=== PATIENT | female | born 1960 | race Caucasian/White ===

== ENCOUNTER 2018-05-20 08:24 | Observation (INO) ==
[2018-05-20] MEDS ORDERED: ASPIRIN CHEW 324 MG PO STA (08:49)
[2018-05-20] MEDS ORDERED: NITROGLYCERIN SL 0.4 MG/TAB TAB SL STA (08:49)
--- NOTE | 2018-05-20 08:57 | XRay Report ---
SINGLE VIEW CHEST CLINICAL HISTORY: Atypical chest pain. FINDINGS: An AP, portable, upright chest radiograph is obtained. No prior studies are available for c omparison at the time of dictation. The examination is degraded by portable technique and patient rot ation. The cardiomediastinal silhouette is unremarkable. The lungs and pleural spaces are clear. No pneumothorax is seen. The bony thorax is grossly intact. IMPRESSION: No active disease in the chest. Electronically signed by: Fredis Levy M.D. 05/20/2018 8:56 AM
[2018-05-20 09:19] LABS: Basophils # (auto) 0.02 K/uL (0-0.2); Basophils % (auto) 0.4 %; Eosinophils # (auto) 0.05 K/uL (0-0.5); Hematocrit (blood only) 42.1 % (37-47); Hemoglobin 14.7 g/dL (12.0-16.0); Immature Granulocytes # (auto) 0.02 K/uL (0.00-0.02); Immature Granulocytes % (auto) 0.4 %; Lymphocytes # (auto) 1.33 K/uL (1.2-3.4); Lymphocytes % (auto) 25.4 %; Mean Corpuscular Hgb Conc 34.9 g/dL (32-36); Mean Corpuscular Volume 90.9 fL (80-100); Mean Platelet Volume 9.4 fL (7.4-10.4); Monocytes % (auto) 7.6 %; Neutrophils # (auto) 3.41 K/uL (1.4-6.5); Neutrophils % (auto) 65.2 %; Platelet Count 312 K/uL (130-400); RDW Coefficient of Variation 13.2 % (11.5-14.5); RDW Standard Deviation 44.1 fL (36.4-46.3); Red Blood Count 4.63 M/uL (4.2-5.4); White Blood Count 5.23 K/uL (4.8-10.8)
[2018-05-20 09:38] LABS: Albumin Level 4.2 gm/dl (3.4-5.0); Aspartate Aminotransferase 19 U/L (15-37); Blood Urea Nitrogen 17 mg/dl (7-18); Calcium 9.6 mg/dl (8.5-10.1); Carbon Dioxide 23 mmol/L (21-32); Chloride 112 mmol/L (98-107); Creatinine Clr Calc Pharmacy 65.8 ml/min; Est GFR (African American) 71.4; Est GFR (Non-African American) 61.6; Glucose 108 mg/dl (70-99); Potassium 3.7 mmol/L (3.5-5.1); Sodium 143 mmol/L (136-145)
[2018-05-20 09:42] LABS: Alanine Aminotransferase 35 U/L (12-78); Albumin Globulin Ratio 1.2 (0.9-2); Alkaline Phosphatase 81 U/L (45-117); Bilirubin,Total 0.6 mg/dl (0.2-1); Globulin 3.6 gm/dl (2.5-4.0); Total Protein 7.8 gm/dl (6.4-8.2); Troponin I < 0.015 ng/ml (0-0.045)
[2018-05-20 09:59] LABS: D Dimer < 190 ug/L FEU (0-500)
[2018-05-20] MEDS ORDERED: MoRPHine SULFATE 10 MG/ML CARP/VIAL IV STA (10:31)
[2018-05-20] MEDS ORDERED: ONDANSETRON INJ 2 MG/ML 2 ML VIAL IV STA (10:31)
[2018-05-20] MEDS ORDERED: KETOROLAC 30 MG/ML VIAL IV ONE (11:08)
--- NOTE | 2018-05-20 11:24 | History & Physical Report ---
Date of Service May 20, 2018 Assessment & Plan (1) Chest pain: Uncertain etiology, ACS vs costochondritis Also with some lightheadedness and pain with deep inspiration, TTP along sternum Trop neg x1, serials pending Stress ECHO in AM if trop neg EKG WNL Lipid panel, lyme pending CBC, PRP WNL Ddimer neg, will hold on CTA given this in the setting of VSS Trial of toradol, if helpful would lead to more MSK based dx (2) Hyperlipidemia: States dx on routine screening in her teens No hx of tx Lipid panel pending (3) DVT prophylaxis: SCDs, ambulation History of Present Illness Primary Care Provider: NO PCP 57 y/o F c/o chest pain. Pt states she woke up from sleep this AM around 3:30- 4a with a substernal chest pain. She thought at first it was her hands as she has been having issues with b/l carpal tunnel recently. 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 She then realized it was more her chest. She noted that she could not take a deep breath without worsening pain. She was not able to fall back asleep as these sx would come and go. She has strong FH of CVA, so she thought she should be evaluated. She has felt lightheaded with this at times. She was given a nitro in the ED and this lessened her pain to a "light" pain, but it is still present. She is not frankly SOB, but just feels like she cannot get a deep breath. She states that she had a similar episode roughly 2 weeks ago, but it went away. Prior to that, no hx of similar. She worked 10 hours yesterday without issue. She states she did not do any major activity over the weekend as she was trying to rest her hands. She has been eating without issue. Pt denies fever, abd pain, n/v/c/d, LE pain or swelling. She denies recent URI or other viral infection. Pt states she was tested for cholesterol in high school as part of routine screening. 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 She states that she was never put on medication as her mother had many issues with muscle pain on statins. She does have this monitored routinely. Her last lipid panel was last summer. Her records are in the [facility] system as she has followed with her current PCP since the mid-. She now has [facility] insurance however, and will need to change to another group. Allergies Allergy/AdvReac Type Severity Reaction Status Date / Time adhesive Allergy Rash Verified 05/20/18 09:16 Penicillins Allergy Hives Verified 05/20/18 09:16 Home Medications Home Medications Medication Instructions Recorded Confirmed Type No Known Home Medications 05/20/18 05/20/18 History Past Med/Surg History Medical History High cholesterol Family History Mother Stroke Brother Stroke Social History Preferred Language: Romanian Communication Ability: Effective Beliefs That Will Affect Care: None Current Living Situation: Spouse Current Living Situation Comment: Other Information That Helps Us Care for You: No Feels Safe at Home: Yes Safety Concerns: Feels Safe At This Time Smoking Status: Never smoker Hx Alcohol Use: No Hx Substance Use: No Review of Systems Pertinent positives and negatives reviewed in HPI--all others negative Physical Exam Vital Signs (Past 24 Hours): Last Vital Signs Temp 36.9 C 05/20/18 08:30 Pulse 66 05/20/18 11:00 Resp 18 05/20/18 11:00 BP 140/88 05/20/18 11:00 Pulse Ox 98 05/20/18 11:00 Constitutional: WD/WN, vitals as above Eyes: normal visual spain by confrontation and + anicteric sclerae Neck: normal visual inspection and trachea midline Respiratory: normal respiratory effort, lungs clear to auscultation Cardiovascular: Rate/Rhythm: regular rate and regular rhythm Gastrointestinal (Abdomen): Inspection/Auscultation: abdomen not distended Percussion/Palpation: abdomen soft; abdomen nontender Musculoskeletal: Head/Neck/Chest: normocephalic and head atraumatic negative for edema, peripheral pulses intact TTP along sternal region, no TTP laterally Skin: no rashes, warm and dry Neurologic: awake; not confused Speech / Cognition: normal speech Psychiatric: A+Ox3, euthymic affect Results & Data Diagnostic Findings CXR: neg for acute ECG Rhythm: normal sinus Code Status & VTE Plan Code Status Full code VTE Prophylaxis Plan VTE Prophylaxis will be ordered: Yes
[2018-05-20] MEDS ORDERED: MAGNESIUM HYDROXIDE SUSP 30 ML UDC PO PRN (12:29)
[2018-05-20] MEDS ORDERED: NITROGLYCERIN SL 0.4 MG/TAB TAB SL PRN (12:29)
[2018-05-20] MEDS ORDERED: ONDANSETRON INJ 2 MG/ML 2 ML VIAL IV PRN (12:29)
[2018-05-20] MEDS ORDERED: ACETAMINOPHEN 325 MG TAB PO PRN (12:29)
--- NOTE | 2018-05-20 13:44 | Emergency Department Note ---
Entered by Gay Benjamin acting as a scribe for Js Woods DO History of Present Illness General Chief complaint: Cardiac Assessment Stated complaint: SOB, CHEST PAIN, FACE FEELS FUNNY, DIZZY Source: patient History of Present Illness Provider complaint: chest pain Onset (ago): hour(s) 5 Location: chest Severity: similar to prior episodes Pain Consistency: + constant Quality: + other (pressure/heaviness) Associated symptoms: + other (shortness of breath, left arm pain, feeling "funny" around cheek/eye. Denies: weakness, numbness, cough, runny nose, swelling of calves) The patient is a 57 year old female who presents to the Emergency Room with complaints of constant chest pain beginning about 5 hours ago. She describes the pain as a pressure/heaviness, and notes it woke her up. The patient notes she has had similar pain intermittently recently. She states she feels unable to take a deep breath, as breathing exacerbates her pain. The patient reports recent left arm pain, which worsened about 5 hours ago. She notes she feels "funny" around her cheek/eye. The patient denies weakness, numbness, cough, or runny nose. She denies swelling of calves, recent trips, history of immobilization or recent surgery, prior history of DVT, hemoptysis, history of malignancy, history of smoking, diabetes, hypertension, or CAD. Home Medications Home Medications Medication Instructions Recorded Confirmed Type No Known Home Medications 05/20/18 05/20/18 History Allergies Allergy/AdvReac Type Severity Reaction Status Date / Time adhesive Allergy Rash Verified 05/20/18 09:16 Penicillins Allergy Hives Verified 05/20/18 09:16 Past Med/Surg History Medical History High cholesterol Family History Mother Stroke Brother Stroke Social History Preferred Language: Turkish Communication Ability: Effective Beliefs That Will Affect Care: None Current Living Situation: Spouse Current Living Situation Comment: Other Information That Helps Us Care for You: No Feels Safe at Home: Yes Safety Concerns: Feels Safe At This Time Smoking Status: Never smoker Hx Alcohol Use: No Hx Substance Use: No Review of Systems See HPI for pertinent positives & negatives. and A total of 10 systems reviewed and were otherwise negative Physical Exam Vital Signs Vital Signs - 24 hr 05/20/18 08:30 05/20/18 08:32 05/20/18 08:46 Temperature 36.9 C Temperature Source Oral Sepsis Recent Fever Within 48 Hours No Sepsis Action Taken by Nursing No Action Required Pulse Rate 71 Pulse Rate [Apical] Pulse Rate from SpO2 Sensor Pulse Rhythm Regular Pulse Rhythm [Apical] Pulse Strength Normal Pulse Strength [Apical] Respiratory Rate 20 Respiratory Effort / Characteristics Non-Labored Respiratory Depth Normal Respiratory Pattern Regular Blood Pressure Blood Pressure [Right Arm] 173/100 H Blood Pressure Mean Blood Pressure Mean [Right Arm] 124 Blood Pressure Position Sitting Blood Pressure Position [Right Arm] Sitting Pulse Oximetry 100 100 Oxygen Delivery Method Room Air Room Air Oxygen Flow Rate 0 05/20/18 08:50 05/20/18 09:05 05/20/18 09:13 Temperature Temperature Source Sepsis Recent Fever Within 48 Hours Sepsis Action Taken by Nursing Pulse Rate Pulse Rate [Apical] 75 86 66 Pulse Rate from SpO2 Sensor Pulse Rhythm Pulse Rhythm [Apical] Regular Regular Regular Pulse Strength Pulse Strength [Apical] Normal Respiratory Rate 19 12 11 L Respiratory Effort / Characteristics Non-Labored Non-Labored Respiratory Depth Normal Normal Respiratory Pattern Regular Blood Pressure Blood Pressure [Right Arm] 147/86 H 133/76 152/78 H Blood Pressure Mean Blood Pressure Mean [Right Arm] 106 95 102 Blood Pressure Position Blood Pressure Position [Right Arm] Sitting Sitting Pulse Oximetry 100 98 98 Oxygen Delivery Method Room Air Room Air Room Air Oxygen Flow Rate 05/20/18 09:30 05/20/18 10:00 05/20/18 10:30 Temperature Temperature Source Sepsis Recent Fever Within 48 Hours Sepsis Action Taken by Nursing Pulse Rate 67 67 Pulse Rate [Apical] 66 Pulse Rate from SpO2 Sensor 67 66 Pulse Rhythm Pulse Rhythm [Apical] Regular Pulse Strength Pulse Strength [Apical] Respiratory Rate 11 L 17 12 Respiratory Effort / Characteristics Non-Labored Respiratory Depth Normal Respiratory Pattern Regular Blood Pressure 120/74 135/82 Blood Pressure [Right Arm] 127/83 Blood Pressure Mean 89 99 Blood Pressure Mean [Right Arm] 97 Blood Pressure Position Blood Pressure Position [Right Arm] Sitting Pulse Oximetry 99 99 99 Oxygen Delivery Method Room Air Oxygen Flow Rate 05/20/18 10:44 05/20/18 11:00 05/20/18 11:30 Temperature Temperature Source Sepsis Recent Fever Within 48 Hours Sepsis Action Taken by Nursing Pulse Rate Pulse Rate [Apical] 66 65 Pulse Rate from SpO2 Sensor Pulse Rhythm Pulse Rhythm [Apical] Pulse Strength Pulse Strength [Apical] Respiratory Rate 18 18 Respiratory Effort / Characteristics Non-Labored Spontaneous Non-Labored Spontaneous Non-Labored Spontaneous Respiratory Depth Normal Normal Normal Respiratory Pattern Regular Blood Pressure Blood Pressure [Right Arm] 140/88 135/87 Blood Pressure Mean Blood Pressure Mean [Right Arm] 105 103 Blood Pressure Position Blood Pressure Position [Right Arm] Lying Lying Pulse Oximetry 98 99 Oxygen Delivery Method Room Air Room Air Room Air Oxygen Flow Rate 05/20/18 11:49 05/20/18 12:14 05/20/18 12:15 Temperature Temperature Source Sepsis Recent Fever Within 48 Hours Sepsis Action Taken by Nursing Pulse Rate 66 Pulse Rate [Apical] 66 85 Pulse Rate from SpO2 Sensor Pulse Rhythm Pulse Rhythm [Apical] Pulse Strength Pulse Strength [Apical] Respiratory Rate 14 16 14 Respiratory Effort / Characteristics Non-Labored Respiratory Depth Shallow Respiratory Pattern Regular Blood Pressure Blood Pressure [Right Arm] 135/87 136/79 Blood Pressure Mean Blood Pressure Mean [Right Arm] 103 98 Blood Pressure Position Blood Pressure Position [Right Arm] Sitting Pulse Oximetry 99 99 99 Oxygen Delivery Method Room Air Room Air Room Air Oxygen Flow Rate GENERAL: Sitting up in bed, alert, well appearing, well nourished, no distress, non-toxic EYE EXAM: normal conjunctiva. PERRL and EOM's intact. OROPHARYNX: no exudate, no erythema, lips, buccal mucosa, and tongue normal and mucous membranes are moist NECK: supple, no nuchal rigidity, no adenopathy, non-tender LUNGS: Clear to auscultation. Normal chest wall mechanics HEART: no murmurs, S1 normal and S2 normal ABDOMEN: abdomen soft, non-tender, normo-active bowel, sounds, no masses, no re bound or guarding. BACK: Back is symmetrical on inspection and there is no deformity, no midline tenderness, no CVA tenderness. SKIN: no rashes and no bruising UPPER EXTREMITIES: upper extremities are grossly normal. Radial pulses equal bilaterally. LOWER EXTREMITIES: No pitting edema. Calves equal bilaterally. NEURO EXAM: Normal sensorium, cranial nerves II-XII intact, normal speech, no weakness of arms, no weakness of legs. No drift. Finger to noseintact. Gross sensation intact. Course ED COURSE: Vital signs were reviewed and showed hypertension. The patients medical record was reviewed The above diagnostic studies were performed and reviewed. ED treatments and interventions as stated above. 0840: The patient was evaluated in room B2. A complete history and physical examination was performed. 1031: The patient states her pain improved with nitroglycerin, but is now returning. I discussed my findings with the patient and she understands and agrees with the treatment plan. 1046: I reviewed the patient's case with Dr. Al, [facility] hospitalist. She will evaluate the patient for further management. Based on the patients age, coexisting illnesses, exam and lab findings the decision to treat as an inpatient was made. The patient remained stable while under my care. The patient will be evaluated for further management. Consultations Consultation #1: Dr. Al, [facility] hospitalist Time: 10:46 Administered Medications Discontinued Medications Aspirin (Aspirin) 324 mg PO NOW STA Stop: 05/20/18 08:50 Last Admin: 05/20/18 08:57 Dose: 324 mg Documented by: [id number] Ketorolac Tromethamine (Toradol) 30 mg IV NOW ONE Stop: 05/20/18 11:09 Last Admin: 05/20/18 11:15 Dose: 30 mg Documented by: [id number] Morphine Sulfate (Morphine Sulfate) 6 mg IV NOW STA Stop: 05/20/18 10:32 Last Admin: 05/20/18 11:09 Dose: Not Given Documented by: [id number] Nitroglycerin (Nitrostat) 0.4 mg SL NOW STA Stop: 05/20/18 08:50 Last Admin: 05/20/18 08:59 Dose: 0.4 mg Documented by: [id number] Ondansetron HCl (Zofran) 4 mg IV NOW STA Stop: 05/20/18 10:32 Last Admin: 05/20/18 11:10 Dose: Not Given Documented by: [id number] Medical Decision Making Differential Diagnosis Etiologies such as shingles, musculoskeletal pain, pericarditis, myocarditis, cardiac ischemia, pericardial tamponade, pneumonia, pneumothorax, pleural effusion, hemothorax, pleurisy, aortic pathology, pulmonary embolism, intra- abdominal process, as well as others were considered. Medical Records Attestation: I reviewed the patient's medical records. Home Medications Current Medication List: was personally reviewed by me Laboratory Data Attestation: I reviewed the patient's lab results. Result diagrams: 05/20/18 08:36 05/20/18 08:36 Lab Results 05/20/18 05/20/18 05/20/18 Range/Units 08:36 08:36 08:39 WBC 5.23 (4.8-10.8) K/uL RBC 4.63 (4.2-5.4) M/uL Hgb 14.7 (12.0-16.0) g/dL Hct 42.1 (37-47) % MCV 90.9 (80-100) fL MCH 31.7 (25-34) pg MCHC 34.9 (32-36) g/dL RDW Std Deviation 44.1 (36.4-46.3) fL RDW Coeff of Prema 13.2 (11.5-14.5) % Plt Count 312 (130-400) K/uL MPV 9.4 (7.4-10.4) fL Immature Gran % (Auto) 0.4 % Neut % (Auto) 65.2 % Lymph % (Auto) 25.4 % [place] % (Auto) 7.6 % Eos % (Auto) 1.0 % Baso % (Auto) 0.4 % Immature Gran # (Auto) 0.02 (0.00-0.02) K/uL Neut # (Auto) 3.41 (1.4-6.5) K/uL Lymph # (Auto) 1.33 (1.2-3.4) K/uL [place] # (Auto) 0.40 (0.11-0.59) K/uL Eos # (Auto) 0.05 (0-0.5) K/uL Baso # (Auto) 0.02 (0-0.2) K/uL D-Dimer < 190 (0-500) ug/L FEU Sodium 143 (136-145) mmol/L Potassium 3.7 (3.5-5.1) mmol/L Chloride 112 H (98-107) mmol/L Carbon Dioxide 23 (21-32) mmol/L Anion Gap 8.0 (3-11) BUN 17 (7-18) mg/dl Creatinine 1.00 (0.6-1.2) mg/dl Est Cr Clr Drug Dosing 65.8 ml/min Est GFR ( Amer) 71.4 Est GFR (Non-Af Amer) 61.6 BUN/Creatinine Ratio 17.0 (10-20) Glucose 108 H (70-99) mg/dl Calcium 9.6 (8.5-10.1) mg/dl Total Bilirubin 0.6 (0.2-1) mg/dl AST 19 (15-37) U/L ALT 35 (12-78) U/L Alkaline Phosphatase 81 (45-117) U/L Troponin I < 0.015 (0-0.045) ng/ml Total Protein 7.8 (6.4-8.2) gm/dl Albumin 4.2 (3.4-5.0) gm/dl Globulin 3.6 (2.5-4.0) gm/dl Albumin/Globulin Ratio 1.2 (0.9-2) Lipase 111 (73-393) U/L 05/20/18 Range/Units 12:45 WBC (4.8-10.8) K/uL RBC (4.2-5.4) M/uL Hgb (12.0-16.0) g/dL Hct (37-47) % MCV (80-100) fL MCH (25-34) pg MCHC (32-36) g/dL RDW Std Deviation (36.4-46.3) fL RDW Coeff of Prema (11.5-14.5) % Plt Count (130-400) K/uL MPV (7.4-10.4) fL Immature Gran % (Auto) % Neut % (Auto) % Lymph % (Auto) % [place] % (Auto) % Eos % (Auto) % Baso % (Auto) % Immature Gran # (Auto) (0.00-0.02) K/uL Neut # (Auto) (1.4-6.5) K/uL Lymph # (Auto) (1.2-3.4) K/uL [place] # (Auto) (0.11-0.59) K/uL Eos # (Auto) (0-0.5) K/uL Baso # (Auto) (0-0.2) K/uL D-Dimer (0-500) ug/L FEU Sodium (136-145) mmol/L Potassium (3.5-5.1) mmol/L Chloride (98-107) mmol/L Carbon Dioxide (21-32) mmol/L Anion Gap (3-11) BUN (7-18) mg/dl Creatinine (0.6-1.2) mg/dl Est Cr Clr Drug Dosing ml/min Est GFR ( Amer) Est GFR (Non-Af Amer) BUN/Creatinine Ratio (10-20) Glucose (70-99) mg/dl Calcium (8.5-10.1) mg/dl Total Bilirubin (0.2-1) mg/dl AST (15-37) U/L ALT (12-78) U/L Alkaline Phosphatase (45-117) U/L Troponin I < 0.015 (0-0.045) ng/ml Total Protein (6.4-8.2) gm/dl Albumin (3.4-5.0) gm/dl Globulin (2.5-4.0) gm/dl Albumin/Globulin Ratio (0.9-2) Lipase (73-393) U/L Imaging Data Radiologist's Impression: Radiology results as stated below per my review and the radiologist's interpretation: SINGLE VIEW CHEST CLINICAL HISTORY: Atypical chest pain. FINDINGS: An AP, portable, upright chest radiograph is obtained. No prior studies are available for comparison at the time of dictation. The examination is degraded by portable technique and patient rotation. The cardiomediastinal silhouette is unremarkable. The lungs and pleural spaces are clear. No pneumothorax is seen. The bony thorax is grossly intact. IMPRESSION: No active disease in the chest. Electronically signed by: Fredis Levy M.D. 05/20/2018 8:56 AM ECG Data Attestation: I personally reviewed and interpreted this ECG as follows: Indication: chest pain Rate (beats per minute): 63 Rhythm: normal sinus Findings: + other (normal axis.); no PVC MDM Narrative Patient is a 57-year-old female who presents the ER for chest pain shortness of breath associate with arm pain. She has a past medical history of hyperlipidemia. Symptoms started around 330 this morning. No other exacerbating or remitting factors. Labs were obtained and shows no significant leukocytosis or anemia. D-dimer was negative. BMP along with LFTs bilirubin and lipase is unremarkable. Troponin was negative. Chest x-ray and EKG were unremarkable. Patient was updated bedside and patient was admitted to the hospital for further observation. Patient was given nitro and symptoms did resolve along with aspirin. Her symptoms did recur and consequently she was given IV morphine. Impression & Plan Chest pain, precordial Discharge Plan Visit Data *Final* Discharge Date/Time: 05/20/18 12:15 Chief Complaint: Cardiac Assessment Stated Complaint: SOB, CHEST PAIN, FACE FEELS FUNNY, DIZZY ED Provider: Js Woods Discharge Problem: Chest pain, precordial Patient Disposition: Admitted As Inpatient Discharge Instructions Interventions: ED Discharge Assessment Last Done: 05/20/18 12:15 The scribe's documentation has been prepared under my direction and personally reviewed by me in its entirety. I confirm that the note above accurately reflects all work, treatment, procedures, and medical decision making performed by me.
[2018-05-20 14:18] LABS: Lyme Ab IgM w/WB Rflx Negative (Negative)
[2018-05-20 14:21] LABS: Lyme Ab IgG w/WB Rflx Negative (Negative)
[2018-05-21 07:55] LABS: Chol HDL Ratio 4; Cholesterol 225 mg/dl (0-200); HDL Cholesterol 54 mg/dl; LDL Cholesterol Calculated 144 mg/dl; Triglycerides 137 mg/dl (0-150); VLDL Cholesterol 27 mg/dl
--- NOTE | 2018-05-21 16:42 | Discharge Summary ---
Date of Service May 21, 2018 Admission HPI Per Admitting Provider 57 y/o F c/o chest pain. Pt states she woke up from sleep this AM around 3:30- 4a with a substernal chest pain. She thought at first it was her hands as she has been having issues with b/l carpal tunnel recently. 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 She then realized it was more her chest. She noted that she could not take a deep breath without worsening pain. She was not able to fall back asleep as these sx would come and go. She has strong FH of CVA, so she thought she should be evaluated. She has felt lightheaded with this at times. She was given a nitro in the ED and this lessened her pain to a "light" pain, but it is still present. She is not frankly SOB, but just feels like she cannot get a deep breath. She states that she had a similar episode roughly 2 weeks ago, but it went away. Prior to that, no hx of similar. She worked 10 hours yesterday without issue. She states she did not do any major activity over the weekend as she was trying to rest her hands. She has been eating without issue. Pt denies fever, abd pain, n/v/c/d, LE pain or swelling. She denies recent URI or other viral infection. Pt states she was tested for cholesterol in high school as part of routine screening. 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 She states that she was never put on medication as her mother had many issues with muscle pain on statins. She does have this monitored routinely. Her last lipid panel was last summer. Her records are in the [employer] system as she has followed with her current PCP since the mid-. She now has [facility] insurance however, and will need to change to another group. Principal Diagnosis Chest pain; likely chostochondritis Discharge Exam Constitutional WD/WN, vitals as above Eyes normal visual spain by confrontation and + anicteric sclerae Neck normal visual inspection and trachea midline Respiratory normal respiratory effort, lungs clear to auscultation Cardiovascular Rate/Rhythm: regular rate and regular rhythm Gastrointestinal (Abdomen) Inspection/Auscultation: abdomen not distended Percussion/Palpation: abdomen soft; abdomen nontender Musculoskeletal Head/Neck/Chest: normocephalic and head atraumatic Skin no rashes, warm and dry Neurologic awake; not confused Speech / Cognition: normal speech Psychiatric A+Ox3, euthymic affect Discharge Data Allergies Allergy/AdvReac Type Severity Reaction Status Date / Time adhesive Allergy Rash Verified 05/20/18 09:16 Penicillins Allergy Hives Verified 05/20/18 09:16 Consultations 05/20/18 12:29 Consult Case Management - Discharge Planning Routine Hospital Course (1) Chest pain: Concern for acute coronary syndrome, but all troponins and EKGs were negative. She had a exercise stress test that did not show any ischemic changes. - Likely chostochondritis; patient was advised to take ibuprofen 400mg PO BID x 3-4 days. If this improved her pain, she could then take ibuprofen PRN. If this did not improve her pain, she could try a 1-2 week trial of a PPI. She was advised to follow up with her PCP. (2) Hyperlipidemia: Lipid panel showed total cholesterol of 225, LDL 144, and HDL 54. She deferred starting a statin to decision with her PCP. (3) DVT prophylaxis: SCDs, ambulation Total Time Total Time Spent Total Time Spent (In Minutes): 35 Total Time Includes: Examination of the Patient, Discharge Planning and Medication Reconciliation Discharge Plan Discharge Items Patient Disposition: Home - Self-Care Reason For Visit: CHEST PAIN Discharge Diagnosis: Chest pain - Likely chostochondritis Discharge Goals: Decrease discomfort and Diagnostic testing Activity: Resume your previous activity Non-emergency contact: Primary Care Provider Call non-emergency contact if: your symptoms worsen and your pain is not controlled Follow-up/Referrals: PCP,NO [Physician] - (Please follow up with your PCP (or establish care with one) to follow up on your chest pain episode.) Diet: Regular Addtl Provider Instructions: Darryn Haris, You were admitted to the hospital with chest pain. We were worried about your heart, but your troponins (cardiac enzymes) came back normal, meaning you did not have a heart attack. You then underwent a stress test which showed good heart squeeze even while your heart rate was very high. This tells us that the blood vessels delivering blood to your heart do not have any blockages that are large enough to limit blood flow. Without doing an invasive procedure such as a heart catheterization, this is the best test to look at your risk for heart attack in the future. Since we do not believe this pain was heart-related, we discussed other possible causes of your chest pain. One possible explanation is that you are having a bit of inflammation or irritation of the ribs & tendons in the chest wall. Please take ibuprofen (Motrin) 400mg (usually 2 tablets) two times per day with breakfast and dinner for 3-4 days to see if this improves the pain. If so, you can take ibuprofen as needed for the pain. If it does not help, you should discuss this with your PCP (or find one if you do not have a PCP) because it may some something else like some stomach irritation. If you have severe chest pain, and if you have nausea, vomiting, lightheadedness, palpitations, or if it radiates to your arm or jaw, please return to the hospital right away or call [phone]. Prescriptions: New ibuprofen 200 mg tablet 400 mg PO BID Qty: 16 RF: 0 Continued No Known Home Medications RF: 0 Stand-Alone Forms: My [facility], Work/School Release (Inpt) Discharge Orders: Discharge Order (Routine); Ordered 05/21/18 Ordered By: Darrell Barlow Admission Data Admit Date/Time: 05/20/18 11:12 Attending Provider: Darrell Barlow Admit Provider: Ellie Al Primary Care Provider: Beny Andrews Service: Telemetry Other Interventions: Discharge Summary Assessment (RN) Last Done: 05/21/18 14:50 DC Date/Time DO NOT enter until pt leaves facility: 05/21/18 15:15
== END 2018-05-21 15:15 | disposition home or self-care (01) ==
LOC: ED 08:24 → 2N 08:24 → SUATTDRO 11:12 → 2N 12:15

== ENCOUNTER 2019-09-18 07:56 | Observation (INO) ==
[2019-09-18] MEDS ORDERED: OPTIRAY 320 125ml IV ONE (08:18)
[2019-09-18] MEDS ORDERED: LABETALOL HCL IV 5 MG/ML 20ML IV PRN (08:31)
[2019-09-18] MEDS ORDERED: MAGNESIUM SULFATE / D5W 1 GM/100 ML BAG IV ONE (08:31)
[2019-09-18] MEDS ORDERED: NITROGLYCERIN 2% OINTMENT 30GM TUBE EXT STA (08:37)
--- NOTE | 2019-09-18 08:42 | Emergency Department Note ---
History of Present Illness General Chief complaint: Illness Stated complaint: RT SIDED FACIAL/ARM NUMBNESS Time Seen by Provider: 09/18/19 08:08 Source: patient, RN notes reviewed and old records reviewed Mode of arrival: ambulatory Limitations: no limitations History of Present Illness Provider complaint: Rt sided weakness, chest pain Onset (ago): hour(s) 4 Location: chest Radiation: back Severity: mild Pain Consistency: + intermittent Maximum Pain Intensity: 3 Current Pain Intensity: 3 Quality: + aching Relieved By: + immobilization Exacerbated By: + movement Associated symptoms: + weakness (Right sided) Treatments prior to arrival: none This is a 59-year-old female who presents emergency department complaining of right-sided weakness that started approximately 3-1/2 hours ago. The patient reports she woke out of bed with the symptoms along with numbness and tingling in the right side. In addition to this she is also complaining of right-sided chest pain that is worse with exertion. Upon arrival to the emergency department patient reports her symptoms actually feel better. She reports she has been under a tremendous amount of stress lately as her is tested positive for bonilla virus and she has lost 2 jobs due to this diagnosis. Home Medications Home Medications Medication Instructions Recorded Confirmed Type No Known Home Medications 09/18/19 09/18/19 History Allergies Allergy/AdvReac Type Severity Reaction Status Date / Time adhesive Allergy Rash Verified 09/18/19 10:07 morphine Allergy Dizziness Verified 09/18/19 10:07 Penicillins Allergy Hives Verified 09/18/19 10:07 Past Med/Surg History Medical History High cholesterol NO MEDS Osteoarthritis Simple endometrial hyperplasia without atypia Surgical History H/O carpal tunnel repair BILAT H/O section H/O colonoscopy H/O dilation and curettage H/O foot surgery BILAT -SCREWS IN BOTH History of biopsy UTERINE (-) History of surgery on arm ULNAR NERVE- RIGHT History of tooth extraction S/P bunionectomy LEFT FOOT Family History Mother Stroke TIA (transient ischemic attack) Brother Stroke Father Adenomatous polyp Diverticulitis Afib Lung cancer Aunt Alzheimer disease Diabetes Breast cancer Son Hypertension Family/Other Skin cancer Denies family history of Ovarian cancer Colorectal cancer Social History Smoking Status: Never smoker Second Hand Exposure: No; Hx Alcohol Use: No Hx Substance Use: No Preferred Language: Polish Communication Ability: Effective Manager Required: No Beliefs That Will Affect Care: None Current Living Situation: Spouse Current Living Situation Comment: Other Information That Helps Us Care for You: No Feels Safe at Home: Yes Safety Concerns: Feels Safe At This Time Review of Systems A total of 10 systems reviewed and were otherwise negative Physical Exam Vital Signs Vital Signs - 24 hr 09/18/19 08:37 09/18/19 08:40 09/18/19 08:50 Pulse Rate 69 72 70 Pulse Rate from SpO2 Sensor Respiratory Rate 13 17 11 L Blood Pressure Blood Pressure Mean Pulse Oximetry 09/18/19 09:00 09/18/19 09:01 09/18/19 09:10 Pulse Rate 74 71 72 Pulse Rate from SpO2 Sensor 75 71 70 Respiratory Rate 10 L 7 L 13 Blood Pressure 159/91 H Blood Pressure Mean 120 Pulse Oximetry 100 100 100 09/18/19 09:15 09/18/19 09:16 09/18/19 09:41 Pulse Rate 66 66 81 Pulse Rate from SpO2 Sensor 67 67 77 Respiratory Rate 10 L 9 L 15 Blood Pressure 153/87 H 147/75 H Blood Pressure Mean 126 99 Pulse Oximetry 100 100 100 09/18/19 09:45 09/18/19 09:46 09/18/19 10:00 Pulse Rate 72 83 71 Pulse Rate from SpO2 Sensor 73 79 72 Respiratory Rate 12 16 11 L Blood Pressure 138/96 154/92 H Blood Pressure Mean 111 120 Pulse Oximetry 100 100 99 09/18/19 10:01 09/18/19 10:15 Pulse Rate 73 75 Pulse Rate from SpO2 Sensor 73 77 Respiratory Rate 9 L 19 Blood Pressure Blood Pressure Mean Pulse Oximetry 99 98 VITAL SIGNS - Vital signs and nursing notes were reviewed. GENERAL - 59-year-old female appearing stated age who is in no acute distress. Communicates well with provider and answers questions appropriately. SKIN - Without rashes. HEAD - NC/AT. EYES - PERRL with EOMI bilaterally. Sclera anicteric. Palpebral conjunctiva pink and moist with no injection noted. EARS - No deformities of external structures noted on gross examination bilaterally. No pain elicited with palpation of the tragus bilaterally. External auditory canals without discharge or otorrhea. Tympanic membranes pearly german without retraction or bulging. No fluid or purulent material visualized behind the TM. Handle of malleus, umbo, cone of light, pars tensa/flaccid all easily visualized. NOSE - Midline and without cyanosis. No epistaxis or purulent drainage noted. S eptum midline without deviation or septal hematoma noted. MOUTH/OROPHARYNX - Without perioral cyanosis. Buccal mucosa pink and moist and without leukoplakia. Tongue midline with equal elevation of palate bilaterally. No tonsillar hypertrophy, erythema, or exudates noted. dentition noted. NECK - Neck with FROM. Supple to palpation. lymphadenopathy noted. No nuchal rigidity. LUNGS - Chest wall symmetric without accessory muscle use, intercostals retractions, or central cyanosis. Normal vesicular breath sounds CTA B/L. No wheezes, rales, or rhonchi appreciated. CARDIAC - RRR with S1/S2. No murmur, rubs, or gallops appreciated. ABDOMEN - Abdominal contour without pulsations or visible masses. BS normoactive all four quadrants. No tenderness, palpable masses, hepatosplenomegaly, or ascites noted. EXTREMITIES - No clubbing or peripheral cyanosis. No pretibial edema present. +3/5 radial, posterior tibial, and dorsalis pedis pulses palpated throughout. +5/5 strength noted in UE/LE bilaterally. NEUROLOGIC - Cranial nerves II through XII grossly intact. Sensory intact to light touch throughout. Patellar reflexes +2/4. PSYCH - A&Ox3 and cooperates fully with examiner. Pt is very pleasant and interacts well with examiner. Course Administered Medications Acetaminophen (Tylenol) 650 mg PO Q4H PRN PRN Reason: Pain or Fever Stop: 10/18/19 23:52 Last Admin: 09/19/19 00:01 Dose: 650 mg Documented by: [id number] Nitroglycerin (Nitro-Bid 2%) 1 inch EXT Q6H C[place]SEA Stop: 10/18/19 11:59 Last Admin: 09/19/19 06:11 Dose: 1 inch Documented by: [id number] Admin: 09/18/19 23:48 Dose: 1 inch Documented by: [id number] Admin: 09/18/19 18:21 Dose: 1 inch Documented by: [id number] Admin: 09/18/19 13:28 Dose: 1 inch Documented by: [id number] Discontinued Medications Magnesium Sulfate/Dextrose (Magnesium Sulfate / D5w) 1 gm in 100 mls @ 50 mls/hr IV ONE ONE Stop: 09/18/19 10:30 Last Infusion: 09/18/19 11:05 Dose: 0 mls/hr Documented by: [id number] Admin: 09/18/19 09:08 Dose: 50 mls/hr Documented by: [id number] Lorazepam (Ativan) 1 mg in 2 mls @ 2 mls/min IV NOW STA Stop: 09/18/19 15:04 Last Admin: 09/18/19 15:30 Dose: 2 mls/min Documented by: [id number] Ioversol (Optiray 320 125ml) 118 ml IV ONCE ONE Stop: 09/18/19 08:19 Last Admin: 09/18/19 08:19 Dose: 118 ml Documented by: [id number] Labetalol HCl (Normodyne) 10 mg IV Q10M PRN PRN Reason: SBP above 185 or DBP above 110 Last Admin: 09/18/19 09:09 Dose: 10 mg Documented by: [id number] Cosigned by: [id number] Lorazepam (Ativan) 0.5 mg PO UD PRN PRN Reason: for MRI Stop: 09/18/19 23:59 Last Admin: 09/18/19 14:39 Dose: 0.5 mg Documented by: [id number] Admin: 09/18/19 13:56 Dose: 0.5 mg Documented by: [id number] Nitroglycerin (Nitro-Bid 2%) 1 inch EXT NOW STA Stop: 09/18/19 08:38 Last Admin: 09/18/19 09:08 Dose: 1 inch Documented by: [id number] Perflutren Lipid Microsphere (Definity) 2 ml IV ONCE ONE Stop: 09/18/19 13:38 Last Admin: 09/18/19 13:38 Dose: 2 ml Documented by: [id number] Critical Care Time I have personally spent greater than 30 minutes of critical care time in the direct management of this patient. This includes bedside care, interpretation of diagnostic studies, and testing, discussion with consultants, patient, and family members, and other required patient management activities. This 30 minutes is in excess of all separately billable procedures. Medical Decision Making Differential Diagnosis Infection, dehydration, metabolic abnormality, hypo/hyperglycemia, electrolyte disturbance, anemia, hypoxia, cardiac sources, intracerebral event, toxicologic, neurologic, as well as other pathologies. Medical Records Attestation: I reviewed the patient's medical records. Home Medications Current Medication List: was personally reviewed by me Laboratory Data Attestation: I reviewed the patient's lab results. Result diagrams: 09/19/19 05:22 09/19/19 05:22 Lab Results 09/18/19 09/18/19 09/18/19 Range/Units 08:20 08:20 08:40 WBC 4.76 L (4.8-10.8) K/uL RBC 4.68 (4.2-5.4) M/uL Hgb 14.7 (12.0-16.0) g/dL Hct 43.5 (37-47) % MCV 92.9 (80-100) fL MCH 31.4 (25-34) pg MCHC 33.8 (32-36) g/dL RDW Std Deviation 44.8 (36.4-46.3) fL RDW Coeff of Prema 13.1 (11.5-14.5) % Plt Count 320 (130-400) K/uL MPV 9.4 (7.4-10.4) fL Immature Gran % (Auto) 0.2 % Neut % (Auto) 62.2 % Lymph % (Auto) 28.6 % [place] % (Auto) 7.8 % Eos % (Auto) 0.8 % Baso % (Auto) 0.4 % Neut # (Auto) 2.96 (1.4-6.5) K/uL Lymph # (Auto) 1.36 (1.2-3.4) K/uL [place] # (Auto) 0.37 (0.11-0.59) K/uL Eos # (Auto) 0.04 (0-0.5) K/uL Baso # (Auto) 0.02 (0-0.2) K/uL Immature Gran # (Auto) 0.01 (0.00-0.02) K/uL PT (9.0-12.0) Seconds INR (0.9-1.1) APTT (21.0-31.0) Seconds PTT Ratio Sodium (136-145) mmol/L Potassium (3.5-5.1) mmol/L Chloride (98-107) mmol/L Carbon Dioxide (21-32) mmol/L Anion Gap (3-11) BUN (7-18) mg/dl Creatinine (0.6-1.2) mg/dl Est Cr Clr Drug Dosing ml/min Est GFR ( Amer) Est GFR (Non-Af Amer) BUN/Creatinine Ratio (10-20) Glucose (70-99) mg/dl Calcium (8.5-10.1) mg/dl Magnesium (1.8-2.4) mg/dl Total Bilirubin (0.2-1) mg/dl AST (15-37) U/L ALT (12-78) U/L Alkaline Phosphatase (45-117) U/L CK-MB (CK-2) (0.5-3.6) ng/ml Troponin I (0-0.045) ng/ml Total Protein (6.4-8.2) gm/dl Albumin (3.4-5.0) gm/dl Globulin (2.5-4.0) gm/dl Albumin/Globulin Ratio (0.9-2) COVID-19 Eval Order Covid19 Done at [facility] COVID-19 PCR NEGATIVE (Negative) 09/18/19 09/18/19 Range/Units 08:40 08:40 WBC (4.8-10.8) K/uL RBC (4.2-5.4) M/uL Hgb (12.0-16.0) g/dL Hct (37-47) % MCV (80-100) fL MCH (25-34) pg MCHC (32-36) g/dL RDW Std Deviation (36.4-46.3) fL RDW Coeff of Prema (11.5-14.5) % Plt Count (130-400) K/uL MPV (7.4-10.4) fL Immature Gran % (Auto) % Neut % (Auto) % Lymph % (Auto) % [place] % (Auto) % Eos % (Auto) % Baso % (Auto) % Neut # (Auto) (1.4-6.5) K/uL Lymph # (Auto) (1.2-3.4) K/uL [place] # (Auto) (0.11-0.59) K/uL Eos # (Auto) (0-0.5) K/uL Baso # (Auto) (0-0.2) K/uL Immature Gran # (Auto) (0.00-0.02) K/uL PT 10.9 (9.0-12.0) Seconds INR 1.0 (0.9-1.1) APTT 24.4 (21.0-31.0) Seconds PTT Ratio 0.9 Sodium 143 (136-145) mmol/L Potassium 3.7 (3.5-5.1) mmol/L Chloride 115 H (98-107) mmol/L Carbon Dioxide 23 (21-32) mmol/L Anion Gap 5.0 (3-11) BUN 15 (7-18) mg/dl Creatinine 1.13 (0.6-1.2) mg/dl Est Cr Clr Drug Dosing 57.3 ml/min Est GFR ( Amer) 60.7 Est GFR (Non-Af Amer) 52.4 BUN/Creatinine Ratio 13.0 (10-20) Glucose 120 H (70-99) mg/dl Calcium 9.4 (8.5-10.1) mg/dl Magnesium 2.3 (1.8-2.4) mg/dl Total Bilirubin 0.6 (0.2-1) mg/dl AST 25 (15-37) U/L ALT 37 (12-78) U/L Alkaline Phosphatase 72 (45-117) U/L CK-MB (CK-2) 2.7 (0.5-3.6) ng/ml Troponin I < 0.015 (0-0.045) ng/ml Total Protein 7.8 (6.4-8.2) gm/dl Albumin 4.0 (3.4-5.0) gm/dl Globulin 3.8 (2.5-4.0) gm/dl Albumin/Globulin Ratio 1.0 (0.9-2) COVID-19 Eval Order COVID-19 PCR (Negative) Imaging Data Radiologist's Impression: [facility], [place] [phone] XRay Report Patient: GEORGI PLEITEZ Date: 09/18/19 MR#: [id number]: [address] [facility] Acct ID:[id number]: Date: 1960[facility] Zip: [place] [address] Age: 59Location: ED Sex: F Room/Bed: Att Phy:Diagnosis: RT SIDED FACIAL/ARM NUMBNESS Karmen Phy: Beny Andrews, LARRYervice Date: 09/18/19 [facility] Phy:Interpreting Phy: Leon Gary MD Admit Phy: Ordering Phy: Jonathon Watkins MD cc: ~ XR chest 1V portable CLINICAL HISTORY: Pt c/o Rt sided weaknss COMPARISON STUDY: 05/20/2018 FINDINGS: The bones soft tissues and hemidiaphragms are normal. The cardiomediastinal silhouette is normal. The lungs are clear. The pulmonary vasculature is normal. IMPRESSION: Negative chest. ACT 112: Negative or not required by law. The above report was generated using voice recognition software. It may contain grammatical, syntax or spelling errors. Electronically signed by: Leon Gary M.D. 09/18/2019 9:11 AM Dictated: 09/18/19 0911 Transcribed: 09/18/19 0911 [facility], [place] [phone] CT Scan Report Patient: GEORGI PLEITEZ Date: 09/18/19 MR#: [id number]: [address] [facility] Acct ID:[id number]: Date: 1960[facility] Zip: [place] [address] Age: 59Location: ED Sex: F Room/Bed: Att Phy:Diagnosis: RT SIDED FACIAL/ARM NUMBNESS Karmen Phy: Beny Andrews, LARRYervice Date: 09/18/19 [facility] Phy:Interpreting Phy: Leon Gary MD Admit Phy: Ordering Phy: Jonathon Watkins MD cc: ~ CT head/brain wo con CT DOSE: 1125.70 mGy.cm HISTORY: Stroke evaluation TECHNIQUE: Multiaxial CT images of the head were performed without the use of intravenous contrast. A dose lowering technique was utilized adhering to the principles of ALARA. Comparison: None. Findings: The paranasal sinuses and mastoid air cells are clear. The calvarium and skull base are intact. The ventricles and sulci are within normal limits. There is no mass, hematoma, midline shift, or acute infarct. Impression: No acute intracranial abnormality. ACT 112: Negative or not required by law. The above report was generated using voice recognition software. It may contain grammatical, syntax or spelling errors. Electronically signed by: Leon Gary M.D. 09/18/2019 9:45 AM Dictated: 09/18/1947 Transcribed: 09/18/19944 [facility], [place] [phone] CT Scan Report Patient: GEORGI PLEITEZ Date: 09/18/19 MR#: [id number]: [address] Acct ID:[id number]: Date: 1960ty Zip: [place] [address] Age: 59Location: ED Sex: F Room/Bed: Att Phy:Diagnosis: RT SIDED FACIAL/ARM NUMBNESS Karmen Phy: Beny Andrews MDService Date: 09/18/19 Fam Phy:Interpreting Phy: Leon Gary MD Admit Phy: Ordering Phy: Jonathon Watkins MD cc: ~ CT angio head w con HISTORY: Mental status change Stroke evaluation TECHNIQUE: Multiaxial CT angiography of the head was performed IV contrast: 100 cc Maximum intensity projection images were also obtained. A dose lowering technique was utilized adhering to the principles of ALARA. COMPARISON: None. FINDINGS: There is no mass, hematoma, midline shift, or acute infarct. Visua lized intracranial internal carotid arteries, distal vertebral arteries, and basilar artery are widely patent. There is no significant stenosis, occlusion, or aneurysm seen within the bilateral ACAs, MCAs, or executive sales manager. IMPRESSION: No significant stenosis, occlusion, or aneurysm within the [place]. ACT 112: Negative or not required by law. The above report was generated using voice recognition software. It may contain grammatical, syntax or spelling errors. Electronically signed by: Leon Gary M.D. 09/18/2019 9:52 AM Dictated: 09/18/1954 Transcribed: 09/18/19951 [facility], [place] [phone] CT Scan Report Patient: GEORGI PLEITEZ Date: 09/18/19 MR#: [id number]: [address] Acct ID:[id number]: Date: 1960[facility] Zip: [place] [address] Age: 59Location: ED Sex: F Room/Bed: Att Phy:Diagnosis: RT SIDED FACIAL/ARM NUMBNESS Karmen Phy: Beny Andrews, MDService Date: 09/18/19 Fam Phy:Interpreting Phy: Leon Gary MD Admit Phy: Ordering Phy: Jonathon Watkins MD cc: ~ CT angio neck with con HISTORY: Stroke evaluation TECHNIQUE: Multiaxial CT angiography of the neck was performed IV contrast: 100 cc All measurements were calculated based on NASCET criteria. Maximum inte nsity projection images were also obtained. A dose lowering technique was utilized adhering to the principles of ALARA. COMPARISON STUDY: None. FINDINGS: The aortic arch and proximal great vessels are widely patent. There is no significant stenosis, occlusion, or dissection identified within the bilateral common carotid, internal carotid, or vertebral arteries. IMPRESSION: No significant stenosis, occlusion, or dissection identified within the carotid or vertebral arteries. ACT 112: Negative or not required by law. The above report was generated using voice recognition software. It may contain grammatical, syntax or spelling errors. Electronically signed by: Leon Gary M.D. 09/18/2019 9:49 AM Dictated: 09/18/1948 Transcribed: 09/18/19 0946 [facility], [place] [phone] Magnetic Resonance Report Patient: GEORGI PLEITEZ Date: 09/18/19 MR#: [id number]: [address] Acct ID:[id number]: Date: 1960[facility] Zip: [place] [address] Age: 59Location: 2W Sex: F Room/Bed: W250-2 Att Phy: Delvin Roy MDDiagnosis: HYPERTENSIVE URGENCY, POS TIA, CHEST PAIN R/O [place] Karmen Phy: Beny Andrews MDService Date: 09/18/19 Fam Phy:Interpreting Phy: Leon Gary MD Admit Phy: Delvin Roy MD Ordering Phy: Delvin Roy MD cc: ~ MR brain wo con HISTORY: Right sided face and arm weakness TECHNIQUE: Multiplanar multisequence MRI of the brain was performed without the use of contrast. COMPARISON STUDY: None. FINDINGS: There are no areas of restricted diffusion to suggest acute infarction. The midline structures are intact. The paranasal sinuses are clear. The mastoid air cells are clear. The ventricles and sulci are within normal limits for age. There is no mass, hematoma, midline shift. The major vascular flow-voids at the skull base are well maintained. IMPRESSION: No acute intracranial abnormality. ACT 112: Negative or not required by law. The above report was generated using voice recognition software. It may contain grammatical, syntax or spelling errors. Electronically signed by: Leon Gary M.D. 09/18/2019 3:53 PM Dictated: 09/18/19 1544 Transcribed: 09/18/19 1544 ECG Data Attestation: I personally reviewed and interpreted this ECG as follows: Indication: + chest pain Rate (beats per minute): 67 Rhythm: + normal sinus ECG Intervals/blocks: + Normal QT-c (443) ECG Eidson: + Normal ECG ST segments: no ST depression and no ST elevation Comparison ECG Date: from (05/20/2018) Change: no significant change Blood Pressure Blood Pressure Findings: Elevated blood pressure Blood Pressure Disposition: further management by hospitalist MDM Narrative This is a 59-year-old female who presents emergency department complaining of ch est pain as well as right-sided weakness. The patient's blood pressure upon arrival to the emergency department is grossly elevated for this reason she was given Nitropaste as well as IV metoprolol. Repeat examination revealed improvement in both the patient's symptoms as well as her chest pressure. She does not have an elevation in her white blood cell count CTA of the head and neck does not show any acute process however based on her symptoms I did discuss the case with the hospitalist service who did agree to admit the patient. Patient and family are in agreement with the treatment plan. Patient was seen and evaluated as above in room C6. Review was performed of nursing notes and vital signs. I did review pertinent previous visits and patient history. After obtaining a thorough history and physical examination the above work up was performed. An order was placed for continuous cardiac monitoring. The monitor shows a rate of 80 with Normal Sinus rhythm. The patient was evaluated during the global COVID-19 pandemic, and that diagnosis was suspected/considered upon their initial presentation. Their evaluation, treatment and testing was consistent with current guidelines for patients who present with complaints or symptoms that may be related to COVID- 19. Impression & Plan Hypertensive urgency, Stroke-like symptoms, Chest pain Discharge Plan Visit Data *Final* Discharge Date/Time: 09/18/19 11:16 Chief Complaint: Illness Stated Complaint: RT SIDED FACIAL/ARM NUMBNESS ED Provider: Jonathon Watkins Discharge Problem: Hypertensive urgency, Stroke-like symptoms, Chest pain Patient Disposition: Admitted As Inpatient Discharge Instructions Interventions: ED Discharge Assessment Last Done: 09/18/19 11:16 Discharge Problem: Chest pain Qualifiers: Chest pain type: unspecified Qualified Code(s): R07.9 - Chest pain, unspecified
[2019-09-18 08:55] LABS: Basophils # (auto) 0.02 K/uL (0-0.2); Basophils % (auto) 0.4 %; Eosinophils # (auto) 0.04 K/uL (0-0.5); Eosinophils % (auto) 0.8 %; Hematocrit (blood only) 43.5 % (37-47); Hemoglobin 14.7 g/dL (12.0-16.0); Immature Granulocytes # (auto) 0.01 K/uL (0.00-0.02); Immature Granulocytes % (auto) 0.2 %; Lymphocytes # (auto) 1.36 K/uL (1.2-3.4); Lymphocytes % (auto) 28.6 %; Mean Corpuscular Hemoglobin 31.4 pg (25-34); Mean Corpuscular Hgb Conc 33.8 g/dL (32-36); Mean Corpuscular Volume 92.9 fL (80-100); Mean Platelet Volume 9.4 fL (7.4-10.4); Monocytes # (auto) 0.37 K/uL (0.11-0.59); Monocytes % (auto) 7.8 %; Neutrophils # (auto) 2.96 K/uL (1.4-6.5); Neutrophils % (auto) 62.2 %; Platelet Count 320 K/uL (130-400); RDW Coefficient of Variation 13.1 % (11.5-14.5); RDW Standard Deviation 44.8 fL (36.4-46.3); Red Blood Count 4.68 M/uL (4.2-5.4); White Blood Count 4.76 K/uL (4.8-10.8)
[2019-09-18 09:10] LABS: Partial Thromboplastin Ratio 0.9; Partial Thromboplastin Time 24.4 Seconds (21.0-31.0); Prothrombin Time 10.9 Seconds (9.0-12.0)
[2019-09-18 09:11] LABS: Alanine Aminotransferase 37 U/L (12-78); Aspartate Aminotransferase 25 U/L (15-37); Blood Urea Nitrogen 15 mg/dl (7-18); Calcium 9.4 mg/dl (8.5-10.1); Carbon Dioxide 23 mmol/L (21-32); Chloride 115 mmol/L (98-107); Creatinine Clr Calc Pharmacy 57.3 ml/min; Est GFR (African American) 60.7; Est GFR (Non-African American) 52.4; Glucose 120 mg/dl (70-99); Magnesium 2.3 mg/dl (1.8-2.4); Potassium 3.7 mmol/L (3.5-5.1); Sodium 143 mmol/L (136-145)
--- NOTE | 2019-09-18 09:12 | XRay Report ---
XR chest 1V portable CLINICAL HISTORY: Pt c/o Rt sided weaknss COMPARISON STUDY: 05/20/2018 FINDINGS: The bones soft tissues and hemidiaphragms are normal. The cardiomediastinal silhouette is n ormal. The lungs are clear. The pulmonary vasculature is normal. IMPRESSION: Negative chest. ACT 112: Negative or not required by law. The above report was generated using voice recognition software. It may contain grammatical, syntax or spelling errors. Electronically signed by: Leon Gary M.D. 09/18/2019 9:11 AM
[2019-09-18 09:16] LABS: Alkaline Phosphatase 72 U/L (45-117); Bilirubin,Total 0.6 mg/dl (0.2-1); Creatine Kinase MB 2.7 ng/ml (0.5-3.6); Globulin 3.8 gm/dl (2.5-4.0); Total Protein 7.8 gm/dl (6.4-8.2); Troponin I < 0.015 ng/ml (0-0.045)
--- NOTE | 2019-09-18 09:47 | CT Scan Report ---
CT head/brain wo con CT DOSE: 1125.70 mGy.cm HISTORY: Stroke evaluation TECHNIQUE: Multiaxial CT images of the head were performed without the use of intravenous contrast. A dose lowering technique was utilized adhering to the principles of ALARA. Comparison: None. Findings: The paranasal sinuses and mastoid air cells are clear. The calvarium and skull base are int act. The ventricles and sulci are within normal limits. There is no mass, hematoma, midline shift, or acute infarct. Impression: No acute intracranial abnormality. ACT 112: Negative or not required by law. The above report was generated using voice recognition software. It may contain grammatical, syntax or spelling errors. Electronically signed by: Leon Gary M.D. 09/18/2019 9:45 AM
--- NOTE | 2019-09-18 09:51 | CT Scan Report ---
CT angio neck with con HISTORY: Stroke evaluation TECHNIQUE: Multiaxial CT angiography of the neck was performed IV contrast: 100 cc All measurements were calculated based on NASCET criteria. Maximum intensity projection images were also obtained. A dose lowering technique was utilized adhering to the principles of ALARA. COMPARISON STUDY: None. FINDINGS: The aortic arch and proximal great vessels are widely patent. There is no significant sten osis, occlusion, or dissection identified within the bilateral common carotid, internal carotid, or v ertebral arteries. IMPRESSION: No significant stenosis, occlusion, or dissection identified within the carotid or vertebral arteries . ACT 112: Negative or not required by law. The above report was generated using voice recognition software. It may contain grammatical, syntax or spelling errors. Electronically signed by: Leon Gary M.D. 09/18/2019 9:49 AM
--- NOTE | 2019-09-18 09:54 | CT Scan Report ---
CT angio head w con HISTORY: Mental status change Stroke evaluation TECHNIQUE: Multiaxial CT angiography of the head was performed IV contrast: 100 cc Maximum intensi ty projection images were also obtained. A dose lowering technique was utilized adhering to the prin ciples of KINJAL. COMPARISON: None. FINDINGS: There is no mass, hematoma, midline shift, or acute infarct. Visualized intracranial manager of internal al carotid arteries, distal vertebral arteries, and basilar artery are widely patent. There is no sig nificant stenosis, occlusion, or aneurysm seen within the bilateral ACAs, MCAs, or artificial flower maker. IMPRESSION: No significant stenosis, occlusion, or aneurysm within the [place] of [place]. ACT 112: Negative or not required by law. The above report was generated using voice recognition software. It may contain grammatical, syntax or spelling errors. Electronically signed by: Leon Gary M.D. 09/18/2019 9:52 AM
--- NOTE | 2019-09-18 10:23 | Electrocardiogram Report ---
Test Reason : Blood Pressure : / mmHG Vent. Rate : 067 BPM Atrial Rate : 067 BPM P-R Int : 152 ms QRS Dur : 070 ms QT Int : 420 ms P-R-T Axes : 037 014 034 degrees QTc Int : 443 ms Normal sinus rhythm Nonspecific ST abnormality Abnormal ECG When compared with ECG of 20-MAY-2018 08:37, QT has lengthened Confirmed by Jm Khan ([id number]) on 09/18/2019 10:23:17 AM Referred By: REFERRED SELF Confirmed By:Roman Khan
--- NOTE | 2019-09-18 10:24 | History & Physical Report ---
Date of Service September 18, 2019 Assessment & Plan (1) Stroke-like symptoms: Symptoms now resolved Suspect hypertensive urgency rather than TIA however given family history would be pertinent to complete stroke workup: MRI w/o contrast TTE HBA1C and lipid panel with AM labs Speech consult Consult neurology (2) Hypertensive urgency: Continue on nitroglycerin 1 inch patch. Monitor for hypotension as patient appears to have significant white coat hypertension. (3) Chest pain: Serial troponins. Suspect hypertensive urgency as above therefore will not treat as ACS at present. (4) Hyperlipidemia: Lipid panel in AM. Not on medication for this at present. (5) DVT prophylaxis: Likely short duration of stay and mobile therefore will defer prophylaxis at present time. Admission and Anticipated Discharge Date Admission Date: 09/18/2019 History of Present Illness Chief Complaint: Stroke-like symptoms, chest pain Primary Care Provider: Beny Andrews MD Marilee Hester is a 59 year old female who presents to the ER due to sudden onset chest tightness and right sided facial, upper and lower extremity numbness/tingling and weakness. When she woke up this morning she generally didn't feel right. Her symptoms started in her right leg above her knee felt like it was falling asleep. Progressed to her right upper extremity which felt numb and weak. Then her right cheek - felt like it was pushing up on her eye. [place] chest tightness at the same time, like indigestion, left side of chest, no radiation, started at 5:45am when she got up, continued until nitro patch placed in the ER. Associated dizziness/lightheadedness. No slurred speech, change in hearing or smell. Family history of mother having CVA in 50s. 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 Marilee has never felt unwell and has tested negative on multiple occasions but since she was near the end of her job they also asked her not to come back to work therefore she has been self isolating at home with her . She does report elevated blood pressures whenever she goes to her dentist but it is usual normal at home at rest. In the ER she was hypertensive with BP 202/97, symptoms relieved with nitro patch. Allergies Allergy/AdvReac Type Severity Reaction Status Date / Time adhesive Allergy Rash Verified 08/08/20 10:07 morphine Allergy Dizziness Verified 09/18/19 10:07 Penicillins Allergy Hives Verified 09/18/19 10:07 Home Medications Home Medications Medication Instructions Recorded Confirmed Type No Known Home Medications 09/18/19 09/18/19 History Past Med/Surg History Medical History (Updated 09/18/19 @ 12:00 by Delvin Roy MD) High cholesterol NO MEDS Osteoarthritis Simple endometrial hyperplasia without atypia Surgical History (Updated 07/02/19 @ 13:24 by Fariba Cm MD, FACOG) H/O carpal tunnel repair BILAT H/O section H/O colonoscopy H/O dilation and curettage H/O foot surgery BILAT -SCREWS IN BOTH History of biopsy UTERINE (-) History of surgery on arm ULNAR NERVE- RIGHT History of tooth extraction S/P bunionectomy LEFT FOOT Social History (Updated 11/01/18 @ 12:09 by Yanelis Giron) Smoking Status: Never smoker Second Hand Exposure: No; Hx Alcohol Use: No Hx Substance Use: No Preferred Language: Khmer Communication Ability: Effective Analytical Data Miner Required: No Beliefs That Will Affect Care: None Current Living Situation: Spouse Current Living Situation Comment: Other Information That Helps Us Care for You: No Feels Safe at Home: Yes Safety Concerns: Feels Safe At This Time Review of Systems Review of Systems: All systems reviewed & are unremarkable except as noted in HPI & below Physical Exam Constitutional: WD/WN, vitals as above Eyes: PERRL, conjunctivae normal, anicteric sclerae ENMT: external ear and nose normal, oropharynx normal Neck: trachea midline, no thyromegaly Respiratory: normal respiratory effort, lungs clear to auscultation Cardiovascular: RRR, no murmur, no edema Gastrointestinal (Abdomen): normal bowel sounds, soft, nontender, no hepatosplenomegaly Musculoskeletal: no cyanosis or clubbing, extremities motor strength 5/5 Skin: no rashes, warm and dry Neurologic: moves all extremities and awake; no focal motor deficits and not confused Motor/Sensory: no tremor, no pronator drift and no sensory deficit Cranial Nerves: sense of smell intact, PERRL, EOM intact bilaterally, normal facial strength, tongue midline, normal hearing, able to rotate head bilaterally, able to elevate shoulders bilaterally and no nystagmus Psychiatric: A+Ox3, euthymic affect Genitourinary: no CVA tenderness Lymphatic: no cervical or axillary lymphadenopathy Results & Data Results & Data ([facility]) Vital Signs (Past 12 Hours) Vital Signs Temp Pulse Resp BP Pulse Ox 09/18/19 10:01 73 9 L 99 09/18/19 10:00 71 11 L 154/92 H 99 09/18/19 09:46 83 16 100 09/18/19 09:45 72 12 138/96 100 09/18/19 09:41 81 15 147/75 H 100 09/18/19 09:16 66 9 L 100 09/18/19 09:15 66 10 L 153/87 H 100 09/18/19 09:10 72 13 100 09/18/19 09:01 71 7 L 159/91 H 100 09/18/19 09:00 74 10 L 100 09/18/19 08:50 70 11 L 09/18/19 08:40 72 17 09/18/19 08:37 69 13 09/18/19 08:00 37.0 C 74 16 202/[address] head/brain wo con Impression: No acute intracranial abnormality. CT angio head w con IMPRESSION: No significant stenosis, occlusion, or aneurysm within the com[place] of [place]. CT angio neck with con IMPRESSION: No significant stenosis, occlusion, or dissection identified within the carotid or vertebral arteries. ECG Rate (beats per minute): 67 Rhythm: normal sinus Findings: + nonspecific-ST abn Comparison ECG Date: from (05/20/2018) Change: no significant change Code Status & VTE Plan Code Status Full VTE Prophylaxis Plan VTE Prophylaxis will be ordered: No PG Care Time/CCT Total # of Minutes Spent Total Time Spent with Patient: Total time spent is greater than 50% in coordination of care (as documented) at patient's floor/unit and/or counseling patient: Coding Level of Care Code 25467 OBS Care - Level 3 Diagnoses Stroke-like symptoms R29.90 Hypertensive urgency I16.0 Chest pain R07.9 Hyperlipidemia E78.5 DVT prophylaxis Z29.9
[2019-09-18] MEDS ORDERED: PHARMACIST DISCHARGE MED REC CONSULT PRN (11:52)
[2019-09-18] MEDS: NITROGLYCERIN 2% OINTMENT 30GM TUBE EXT SCH ×3 (13:28→23:48)
[2019-09-18] MEDS ORDERED: PERFLUTREN LIPID MICROSPHERE (DEFINITY) IV ONE (13:37)
[2019-09-18] MEDS: LORazepam 0.5 MG TAB PO PRN ×2 (13:56→14:39)
[2019-09-18] MEDS ORDERED: LORazepam 1 MG/2 ML VIAL IV STA (15:03)
--- NOTE | 2019-09-18 15:54 | Magnetic Resonance Report ---
MR brain wo con HISTORY: Right sided face and arm weakness TECHNIQUE: Multiplanar multisequence MRI of the brain was performed without the use of contrast. COMPARISON STUDY: None. FINDINGS: There are no areas of restricted diffusion to suggest acute infarction. The midline structu res are intact. The paranasal sinuses are clear. The mastoid air cells are clear. The ventricles and sulci are within normal limits for age. There is no mass, hematoma, midline shift. The major vascular flow-voids at the skull base are well maintained. IMPRESSION: No acute intracranial abnormality. ACT 112: Negative or not required by law. The above report was generated using voice recognition software. It may contain grammatical, syntax or spelling errors. Electronically signed by: Leon Gary M.D. 09/18/2019 3:53 PM
--- NOTE | 2019-09-18 16:59 | XCELERA ---
[id number]
[2019-09-18] MEDS ORDERED: ACETAMINOPHEN 325 MG TAB PO PRN (23:53)
[2019-09-19 05:53] LABS: Basophils # (auto) 0.02 K/uL (0-0.2); Basophils % (auto) 0.2 %; Eosinophils # (auto) 0.07 K/uL (0-0.5); Eosinophils % (auto) 0.8 %; Hematocrit (blood only) 41.4 % (37-47); Hemoglobin 13.5 g/dL (12.0-16.0); Immature Granulocytes # (auto) 0.01 K/uL (0.00-0.02); Immature Granulocytes % (auto) 0.1 %; Lymphocytes # (auto) 1.75 K/uL (1.2-3.4); Lymphocytes % (auto) 19.5 %; Mean Corpuscular Hemoglobin 30.9 pg (25-34); Mean Corpuscular Hgb Conc 32.6 g/dL (32-36); Mean Corpuscular Volume 94.7 fL (80-100); Mean Platelet Volume 9.3 fL (7.4-10.4); Monocytes # (auto) 0.91 K/uL (0.11-0.59); Monocytes % (auto) 10.1 %; Neutrophils # (auto) 6.21 K/uL (1.4-6.5); Neutrophils % (auto) 69.3 %; Platelet Count 281 K/uL (130-400); RDW Coefficient of Variation 13.7 % (11.5-14.5); RDW Standard Deviation 47.9 fL (36.4-46.3); Red Blood Count 4.37 M/uL (4.2-5.4); White Blood Count 8.97 K/uL (4.8-10.8)
[2019-09-19] MEDS: NITROGLYCERIN 2% OINTMENT 30GM TUBE EXT SCH (06:11)
[2019-09-19 06:17] LABS: Blood Urea Nitrogen 19 mg/dl (7-18); Calcium 8.6 mg/dl (8.5-10.1); Carbon Dioxide 24 mmol/L (21-32); Chloride 114 mmol/L (98-107); Creatinine Clr Calc Pharmacy 66.5 ml/min; Est GFR (African American) 73.1; Glucose 103 mg/dl (70-99); Potassium 3.9 mmol/L (3.5-5.1); Sodium 143 mmol/L (136-145)
[2019-09-19 06:21] LABS: Chol HDL Ratio 4; Cholesterol 209 mg/dl (0-200); HDL Cholesterol 49 mg/dl; LDL Cholesterol Calculated 136 mg/dl; Triglycerides 118 mg/dl (0-150); Troponin I < 0.015 ng/ml (0-0.045); VLDL Cholesterol 24 mg/dl
--- NOTE | 2019-09-19 09:28 | Neurology Consultation ---
Date of Consultation September 19, 2019 Assessment & Plan (1) Stroke-like symptoms: Marilee Hester is a 59 yo woman w/ PMH of HLD, known endometrial hyperplasia without atypia, and arthritis who p/t [facility] after subacute onset of chest tightness a/w right sided numbness (F/A/L) and dizziness. Symptom localization: left thalamus or basis pontis Stroke mechanism: lacunar/lipohyalinosis Stroke WorkUp: - CT head: shows no hemorrhage or hypodensity - CTA head/neck: no LVO, high-grade stenosis or aneurysm. - MRI brain: no acute or chronic infarct, midline malformation, Chiari malformation or tumor. - TTE: EF 60-65%, no intraatrial shunt noted - Telemetry: pending - A1c: pending - FLP: 136 - Troponin: negative Stroke Management: - Acute treatment: ASA, nitro-paste - Continuous cardiac monitoring - Vitals, Neurochecks, NIHSS per unit routine - BP parameters: SBP CAP 180, IV Labetalol/Hydralazine PRN - Will curriculum counselor concerning stroke education, smoking cessation, healthy diet, physical activity, weight loss - Follow up with PCP for assistance with outpatient goals (BP <130/80, LDL <70, A1c <7) - No need to follow up in neurology clinic Secondary Stroke Prevention: - Antiplatelet: ASA 81mg po daily - Anticoagulation: Not indicated at this time - Statin: Atorvastatin 80mg daily vs fenofibrate vs diet/lifestyle changes HTN: - BP parameters, as above - Goal of lowering BP to normotension over next 3-4 days FEN/GI: - Diet: Cardiac HH diet and PO meds given absence of bulbar signs or symptoms - Monitor lytes and replete PRN Glucose Control: - Sliding scale insulin and accuchecks per primary team to avoid hyperglycemia Thank you for this interesting consult. Plan of care was discussed with primary team. Please call with any questions. She is stable from a neurological standpoint for discharge home. (2) Hypertensive urgency: History of Present Illness Attending Physician: Ellie Al DO History of Present Illness Marliee Hester is a 59 yo woman w/ PMH of HLD, known endometrial hyperplasia without atypia, and arthritis who p/t [facility] after subacute onset of chest tightness a/w right sided numbness (F/A/L) and dizziness. In the ED, BP 202/97 with symptoms improving with placement of a nitro patch. Labs notable for WBC 8.97, hemoglobin 13.5, platelets 281, electrolytes within normal, creatinine 0.97, glucose 103, INR 1, calcium/ magnesium within normal, LFTs within normal, troponin negative, COVID negative. Imaging independently reviewed. CT head shows no hemorrhage or hypodensity. CTA head and neck shows no LVO, high-grade stenosis or aneurysm. MRI brain shows no acute or chronic infarct, midline malformation, Chiari malformation or tumor. On examination today, she reports that symptoms were present upon waking and improved after placement of the nitro paste. She has not had recurrence of symptoms since being in the hospital. She denies having similar symptoms in the past. Does report this is been under a lot of increased stress due to testing positive for COVID and her losing her job. Stroke Workflow: CT ASPECT: 10 Time IV tpa is given: NA tPA bolus: NA tPA dose: NA If tpa not given, why not: Uncontrolled hypertension >185 systolic, symptoms improved with placement of nitro patch If delay >60min after hospital arrival, why: NA If no IA therapy, why not: No LVO on CTA Patient Features: Admission NIHSS: 0 Admission Modified Keisha Scale: 0 Time patient last seen well: evening of 09/17/19 Wake up stroke: Yes Intubation status: Not intubated Stroke Risk Factors: Hypertension: N Hyperlipidemia: Y Atrial Fib: N Tobacco: N Diabetes: N Taking NOAC or warfarin: N Allergies Allergy/AdvReac Type Severity Reaction Status Date / Time adhesive Allergy Rash Verified 09/18/19 10:07 morphine Allergy Dizziness Verified 09/18/19 10:07 Penicillins Allergy Hives Verified 09/18/19 10:07 Home Medications Home Medications Medication Instructions Recorded Confirmed Type No Known Home Medications 09/18/19 09/18/19 History Patient History Medical History High cholesterol NO MEDS Osteoarthritis Simple endometrial hyperplasia without atypia Surgical History H/O carpal tunnel repair BILAT H/O section H/O colonoscopy H/O dilation and curettage H/O foot surgery BILAT -SCREWS IN BOTH History of biopsy UTERINE (-) History of surgery on arm ULNAR NERVE- RIGHT History of tooth extraction S/P bunionectomy LEFT FOOT Family History Mother Stroke TIA (transient ischemic attack) Brother Stroke Father Adenomatous polyp Diverticulitis Afib Lung cancer Aunt Alzheimer disease Diabetes Breast cancer Son Hypertension Family/Other Skin cancer Denies family history of Ovarian cancer Colorectal cancer Social History Smoking Status: Never smoker Second Hand Exposure: No; Hx Alcohol Use: No Hx Substance Use: No Preferred Language: [place] Communication Ability: Effective Shipping Order Clerk Required: No Beliefs That Will Affect Care: None Current Living Situation: Spouse Current Living Situation Comment: Other Information That Helps Us Care for You: No Feels Safe at Home: Yes Safety Concerns: Feels Safe At This Time Review of Systems Review of Systems: 14 point review of systems completed and negative except as in HPI. Exam (Neuro) Physical Exam: General Exam: GEN: NAD, sitting in chair. HEENT: No conjunctival injection, no rhinorrhea. CV: RRR, no peripheral edema PULM: Nonlabored respirations on room air. Neuro Exam: MS: Awake and Alert. Oriented to person, place, and date. Speech fluent and appropriate without dysarthria or paraphasic errors. Language intact including naming, comprehension, repetition. Cognition and memory grossly intact. Attention intact. No neglect. CN: Visual [place] full. No extinction to double simultaneous stimuli. Unable to fully visualize fundi on fundoscopic exam. PERRLA OU. EOMI without nystagmus. Facial sensation intact to LT. Facial muscles full and symmetric. Hearing intact to conversation. Uvula midline with symmetric palatal elevation. Shoulder shrug normal. Tongue midline. MOTOR: Normal bulk and tone. No pronator drift. BUE strength 5/5 at deltoids, biceps, triceps, wrist flexors and extensors, and hand grasp bilaterally. BLE strength 5/5 at iliopsoas, hamstrings, quadriceps, tibialis anterior, and gastrocnemius bilaterally. REFLEXES: 1+ at biceps, triceps, brachioradialis, trace patella and absent Achilles bilaterally. Flexor plantar responses bilaterally. SENSORY: Intact to LT without extinction to double simultaneous stimuli. Vibration intact throughout. COORDINATION: No dysmetria or ataxia on [id number]-[id number] bilaterally. Normal Ad bilaterally. GAIT: Deferred given physical status NIHSS 0 Results & Data ([facility]) Vital Signs (Past 12 Hours) Vital Signs Temp Pulse Pulse Resp BP Pulse Ox 09/19/19 07:17 36.7 C 80 16 113/69 99 09/19/19 06:10 146/77 H 09/19/19 04:14 36.6 C 75 18 118/71 99 09/18/19 23:45 134/74 09/18/19 23:00 36.9 C 69 14 128/72 97 09/18/19 22:20 85 PG Care Time/CCT Total # of Minutes Spent Total Time Spent with Patient: Total time spent is greater than 50% in coordination of care (as documented) at patient's floor/unit and/or counseling patient: Coding Level of Care Code 59817 Inpt Consult Level 5 Diagnoses Stroke-like symptoms R29.90 Hypertensive urgency I16.0
[2019-09-19] MEDS ORDERED: STROKE PATIENT DISCHARGE STA (12:01)
--- NOTE | 2019-09-19 12:09 | Discharge Summary ---
Date of Service September 19, 2019 Admission HPI Per Admitting Provider Marilee Hester is a 59 year old female who presents to the ER due to sudden onset chest tightness and right sided facial, upper and lower extremity numbness/tingling and weakness. When she woke up this morning she generally didn't feel right. Her symptoms started in her right leg above her knee felt like it was falling asleep. Progressed to her right upper extremity which felt numb and weak. Then her right cheek - felt like it was pushing up on her eye. [place] chest tightness at the same time, like indigestion, left side of chest, no radiation, started at 5:45am when she got up, continued until nitro patch placed in the ER. Associated dizziness/lightheadedness. No slurred speech, change in hearing or smell. Family history of mother having CVA in 50s. 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 Marilee has never felt unwell and has tested negative on multiple occasions but since she was near the end of her job they also asked her not to come back to work therefore she has been self isolating at home with her . She does report elevated blood pressures whenever she goes to her dentist but it is usual normal at home at rest. In the ER she was hypertensive with BP 202/97, symptoms relieved with nitro patch. Principal Diagnosis Pt is doing well. She has had no return of her stroke like sx overnight. Ate without issue. Pt denies fever, SOB, chest pain, abd pain, n/v/c/d, LE pain or swelling. Pt states she has been stress eating at work. Since her return to work, she has not been walking as much. She has gained weight over the last several months due to this. She generally eats no/low sodium diet. She makes her own soups without salt. They do not eat a lot of packaged foods. Her has to watch his salt intake, so they don't use much in general. She drinks no caffeine because he cannot drink caffeine. Pt does admit to snoring. Discharge Exam Constitutional WD/WN, vitals as above Eyes normal visual spain by confrontation and + anicteric sclerae Neck normal visual inspection and trachea midline Respiratory normal respiratory effort, lungs clear to auscultation Cardiovascular Rate/Rhythm: regular rate and regular rhythm Gastrointestinal (Abdomen) Inspection/Auscultation: abdomen not distended Percussion/Palpation: abdomen soft; abdomen nontender Musculoskeletal Head/Neck/Chest: normocephalic and head atraumatic Skin no rashes, warm and dry Neurologic awake; not confused Speech / Cognition: normal speech Psychiatric A+Ox3, euthymic affect Discharge Data Allergies Allergy/AdvReac Type Severity Reaction Status Date / Time adhesive Allergy Rash Verified 09/18/19 10:07 morphine Allergy Dizziness Verified 09/18/19 10:07 Penicillins Allergy Hives Verified 09/18/19 10:07 Consultations 09/18/19 10:42 ED Decision to Admit Stat 09/18/19 11:52 Consult Case Management - Discharge Planning Routine Consult Neurology Routine Ordered Studies 09/18/19 08:14 CT angio head w con Stat CT angio neck with con Stat CT head/brain wo con Stat 09/18/19 11:52 MR brain wo con Routine Hospital Course (1) Stroke-like symptoms: Symptoms now resolved Suspect hypertensive urgency rather than TIA however given family history would be pertinent to complete stroke workup: CT, CTA head/neck, MRI neg for acute ECHO with EF 60-65% and neg for structural issues HBA1C pending on d/c Lipid panel with LDL 136, HDL 49 Neuro agrees t/c aspirin 81mg Current conflicting evidence for low risk pts Pt does have a slightly higher risk if she has untx HTN Advised to discuss with PCP if ongoing HTN issues (2) Hypertensive urgency: BP stable Monitor for hypotension as patient appears to have significant white coat hypertension Advised home cuff for monitoring daily Gave paper rx for lisinopril 10mg to start if BP >130/85 Advised close f/u with PCP Pt does snore, would benefit from outpt sleep study as untx PAM could manifest as HTN Recent weight gain with recent increased stress and stress eating Stress reduction techniques discussed Advised that rapid weight gain could be causing her elevated BP (3) Chest pain: Serial troponins neg (4) Hyperlipidemia: Lipid panel as noted Advised for diet modifications (5) DVT prophylaxis: Likely short duration of stay and mobile therefore will defer prophylaxis at present time. Total Time Total Time Spent Total Time Spent (In Minutes): >30 Discharge Plan Discharge Items Patient Disposition: Home - Self-Care Reason For Visit: HYPERTENSIVE URGENCY, POS TIA, CHEST PAIN R/O OK Discharge Diagnosis: Hypertensive urgency Activity: Resume your previous activity Non-emergency contact: Primary Care Provider Call non-emergency contact if: you have any medication questions and your symptoms worsen Follow-up/Referrals: Beny Andrews MD [Primary Care Provider] - Diet: Heart Healthy Addtl Attending Provider Instructions: Your blood pressure was elevated on admission, likely the cause of the symptoms you were having. Your blood pressure has been much better since admission. I am going to give you a prescription for a blood pressure medication to take home. You do not have to start it yet. You should get a blood pressure cuff and check your blood pressure daily. If you are having blood pressures greater than 130 /85, you will need to start taking this medication. You should continue to check your blood pressures daily because the dose of the medication may be too much or not enough to control your blood pressure. You will take your readings to your next several visits with your primary care doctor. As discussed, you should likely have a sleep study done as untreated sleep apnea can cause high blood pressure in otherwise healthy patients. You had mentioned a lot of work and life stress recently, leading to stress eating and weight gain. As we discussed, breathing and medication techniques can be helpful in managing stress, which might help with the stress eating and weight gain, all of which will help your blood pressures. Starting your walking routine will also help with stress and weight and blood pressure. You should start taking a probiotic. The one I recommend for most patients is Jarrow EPS 5 billion. It is a mix of 8 different bacteria. You can find this product at [employer] in [place]. You should start with 1 a day. The goal is to have 1 solid bowel movement a day. This may help with your anxiety as this mix of bacteria contains two different bacteria that have been found to help with anxiety and depression in some patients. Your LDL (bad) cholesterol was towards the high end of normal. You can work with your diet to help keep this under control as we discussed. It sounds like you generally eat a low salt/no salt diet. Some of the foods you are eating with your stress eating may have more sodium in them than you realize. It is normal to want to eat sweet or salty foods when you feel stressed. A good strategy to reduce the volume of those foods that you eat is to drink 1-2 glasses of water before you reach for a snack. This will help you to feel more full and you are less likely to overeat on high sugar/salt/calorie items. There is now mixed data about the efficacy of baby aspirin for prevention of stroke and heart attack in patients in your age group. If you do have high blood pressure that is untreated, your risk of stroke or heart attack is higher than if your blood pressure is controlled. You should discuss use of aspirin with your PCP. Pending Studies at Discharge: Yes Studies:: A1c Stand-Alone Forms: My [facility] [employer]™ Interactive, Smoking Cessation Medications and DC Order Prescriptions: New lisinopril 10 mg tablet 10 mg PO DAILY Qty: 30 RF: 0 No Action No Known Home Medications RF: 0 Discharge Orders: Discharge Order (Routine); Ordered 09/19/19 Ordered By: Ellie Al Admission Data Admit Date/Time: 09/18/19 10:20 Attending Provider: Ellie Al Admit Provider: Delvin Roy Primary Care Provider: Beny Andrews Other Providers: Delvin Roy ; Ana Moscoso Other Interventions: Discharge Summary Assessment (RN) Last Done: 09/19/19 12:38 DC Date/Time DO NOT enter until pt leaves facility: 09/19/19 14:42 Coding Level of Care Code D/C Day Management >30 mins Diagnoses Stroke-like symptoms R29.90 Hypertensive urgency I16.0 Chest pain R07.9 Chest pain type: unspecified Hyperlipidemia E78.5 DVT prophylaxis Z29.9
[2019-09-20 07:02] LABS: Estimated Average Glucose 128 mg/dl; Hemoglobin A1C 6.1 % (4.5-5.6)
== END 2019-09-19 14:42 | disposition home or self-care (01) ==
LOC: 2W 07:56 → ED 07:56 → SUATTDRO 10:20 → 2W 11:16